=== PATIENT | female | born 1995 | race Caucasian/White ===

== ENCOUNTER 2022-01-25 01:25 | Emergency (ER) | payer SELFPAY ==
[2022-01-25] MEDS ORDERED: Sodium Chloride 0.9% 10 ML Syringe FLUSH PRN (01:45)
[2022-01-25] MEDS ORDERED: Lactated Ringers 1,000 ML IV ONE (01:45)
[2022-01-25 02:29] LABS: ANION GAP 11.4 meq/L (7-15); CHLORIDE,CL 106 mmol/L (98-107); SODIUM,NA 141 mmol/L (136-145)
[2022-01-25 03:16] VITALS: BP 132/79; PULSE 103
== END 2022-01-25 03:20 | disposition home or self-care (01) ==
LOC: LL.ED 01:25
DX: R00.0 Tachycardia, unspecified (principal); Z88.0 Allergy status to penicillin
CPT/HCPCS: 36415; 80053; 83735; 84443; 85025; 93005; 99285-25; J7120

== ENCOUNTER 2023-02-07 10:14 | Day surgery (SDC) | payer OTHER ==
[~2023-02-07 10:14] MED LIST: Midazolam 1 MG/ML 2 ML SDV ONE; Propofol 200 MG/20 ML SDV ONE
[2023-02-07] MEDS ORDERED: Sodium Chloride 0.9% 10 ML Syringe FLUSH PRN (10:30)
[2023-02-07] MEDS ORDERED: Lactated Ringers 1,000 ML IV SCH (10:30)
[2023-02-07] MEDS ORDERED: Glycopyrrolate 0.2 MG/ML SDV ONE (11:51)
[2023-02-07] MEDS ORDERED: Propofol 200 MG/20 ML SDV ONE (12:25)
[2023-02-07 12:41] VITALS: BP 110/72; PULSE 83
== END 2023-02-07 13:25 | disposition home or self-care (01) ==
LOC: LL.SDS 10:14
PROVIDERS: ATTEND Surgery
DX: K29.50 Unspecified chronic gastritis without bleeding (principal); K21.00 Gastro-esophageal reflux disease with esophagitis, without bleeding; J45.990 Exercise induced bronchospasm; F41.1 Generalized anxiety disorder; Z79.899 Other long term (current) drug therapy; Z88.0 Allergy status to penicillin
CPT/HCPCS: 00731; 81025; J2250; J2704; J3490; J7120

== ENCOUNTER 2023-06-28 14:00 | Emergency (ER) | payer OTHER ==
[2023-06-28 14:42] LABS: BASOPHILS ABSOLUTE AUTO 0.02 K/uL (0.00-0.20); BASOPHILS PERCENT AUTO 0.3 % (0.0-2.0); EOSINOPHILS ABSOLUTE AUTO 0.05 K/uL (0.00-0.50); EOSINOPHILS PERCENT AUTO 0.8 % (0.0-5.0); HEMATOCRIT 42.5 % (34.0-46.0); HEMOGLOBIN 14.1 g/dL (11.7-15.5); LYMPHOCYTES ABSOLUTE AUTO 1.59 K/uL (0.50-3.50); LYMPHOCYTES PERCENT AUTO 25.9 % (10.0-50.0); MEAN CORPUSCULAR HEMOGLOBIN 31.1 pg (28.2-33.3); MEAN CORPUSCULAR HGB CONC 33.2 g/dL (31.7-36.0); MEAN CORPUSCULAR VOLUME 93.6 fL (84.0-98.0); MONOCYTES ABSOLUTE AUTO 0.49 K/uL (0.00-1.00); NEUTROPHILS ABSOLUTE AUTO 3.98 K/uL (1.40-7.00); PLATELET COUNT,PLT 235 K/uL (150-350); RED BLOOD CELL COUNT 4.54 M/uL (3.77-5.09); RED CELL DISTRIBUTION WIDTH 12.3 % (11.2-14.1); WHITE BLOOD CELL COUNT,WBC 6.1 K/uL (4.0-10.2)
[2023-06-28 14:53] LABS: APPEARANCE,URINE CLEAR; BILIRUBIN,URINE NEGATIVE (NEGATIVE); COLOR,URINE YELLOW; GLUCOSE,URINE NEGATIVE (NEGATIVE); KETONES,URINE NEGATIVE (NEGATIVE); LEUKOCYTE ESTERASE,URINE NEGATIVE (NEGATIVE); NITRITE,URINE NEGATIVE (NEGATIVE); OCCULT BLOOD,URINE TRACE-LYSED (NEGATIVE); PROTEIN,URINE NEGATIVE (NEGATIVE); UROBILINOGEN,URINE 0.2 E.U./dL (0.2-1.0)
[2023-06-28 15:02] LABS: EPITHELIAL CELLS,URINE OCCASIONAL /LPF; RBC,URINE 0-5 /HPF; WBC,URINE NOT SEEN /HPF
[2023-06-28 15:03] LABS: BACTERIA,URINE NOT SEEN /HPF (NONE TO FEW); MUCUS,URINE NOT SEEN /LPF (NEGATIVE)
[2023-06-28 15:11] LABS: ALANINE AMINOTRANSFERASE,ALT 22 U/L (12-78); ALBUMIN 4.3 g/dL (3.4-5.0); ALKALINE PHOSPHATASE 69 IU/L (46-116); ANION GAP 7.9 meq/L (7-15); ASPARTATE AMNIOTRANSFERASE,AST 13 U/L (15-37); BILIRUBIN TOTAL 0.4 mg/dL (0.2-1.0); BLOOD UREA NITROGEN,BUN 6 mg/dL (7-18); CALCIUM 9.7 mg/dL (8.5-10.1); CARBON DIOXIDE,CO2 28.1 mmol/L (21.0-32.0); CHLORIDE,CL 104 mmol/L (98-107); CREATININE 0.68 mg/dL (0.51-1.17); GLUCOSE RANDOM 93 mg/dL (70-99); POTASSIUM,K 4.6 mmol/L (3.5-5.1); PROTEIN TOTAL,TP 7.9 g/dL (6.4-8.2); SODIUM,NA 140 mmol/L (136-145)
[2023-06-28 15:12] LABS: ESTIMATED GFR 121 mL/min (>=60)
[2023-06-28] MEDS ORDERED: Iopamidol 612 MG/ML 100 ML Bottle IVPUSH ONE (15:49)
[2023-06-28 17:07] VITALS: BP 111/81; PULSE 68
[2023-06-28] MEDS ORDERED: Lactulose Soln 10 GM/15 ML 30 ML UD Cup PO ONE ×2 (18:32)
== END 2023-06-28 19:08 | disposition home or self-care (01) ==
LOC: LL.ED 14:00
DX: K59.00 Constipation, unspecified (principal); J45.909 Unspecified asthma, uncomplicated; Z88.0 Allergy status to penicillin
CPT/HCPCS: 36415; 74176; 80053; 81001; 85025; 99284; A9270; Q9967